=== PATIENT | male | born 1985 | race Caucasian/White ===

== ENCOUNTER 2021-07-03 10:57 | Emergency (ER) | payer OTHER ==
[~2021-07-03] VITALS: Ht 182.9 cm; Wt 131.5 kg
[~2021-07-03 10:57] MED LIST: NORCO 5-325 TA1 EACH PO
== END 2021-07-03 15:40 | disposition home or self-care (01) ==
LOC: ER1 10:57
DX: U07.1 COVID-19 (principal); Z23 Encounter for immunization; Z88.0 Allergy status to penicillin
CPT/HCPCS: 99283; M0247